=== PATIENT | female | born 1930 | race Caucasian/White ===

== ENCOUNTER 2017-04-13 00:07 | Emergency (ER) | payer MEDICARE, BC ==
[~2017-04-13] VITALS: Ht 160 cm; Wt 78.5 kg
[~2017-04-13 00:07] MED LIST: AMLODIPINE5 MG PO; ATENOLOL50 MG PO; CENTRUM1 TAB PO; CIPRO500 MG; CIPROFLOXACIN500 MG PO; COMBIGAN 0.2%-0.5 ML OP; DYAZIDE 25 MG-31 CAP PO; HYDROCHLOROTHIA25 MG PO; K-PHOS500 MG PO; LOVENOX30 MG/0.3 SC; LUMIGAN 2.5 ML2.5 ML OPH; METAMUCIL1 PDR PO; PREVACID30 M1 PO; PROTONIX40 M1 PO; TIMOLOL 5 ML5 ML OP; TYLENOL500 MG PO; VICODIN 5/500 505 MG; XANAX0.25 MG PO
[2017-04-13] MEDS ORDERED: LOSARTAN-HCTZ1 EAC1 PO (00:20)
[2017-04-13] MEDS ORDERED: LATANOPROST 2.2.5 ML OP (00:21)
[2017-04-13 00:57] LABS: BASO # 0.1 10*3/uL (0.0-0.1); BASO % 0.7 % (0.0-1.0); EOS # 0.2 10*3/uL (0.0-0.4); EOS % 1.6 % (1.0-4.0); HEMATOCRIT 39.3 % (37.0-47.0); HEMOGLOBIN 13.6 g/dl (12.0-16.0); LYMPH # 2.9 10*3/uL (1.3-4.4); LYMPH % 26.3 % (27.0-41.0); MEAN CELL VOLUME 87.1 fl (81.0-99.0); MEAN CORPUSCULAR HGB 30.2 pg (27.0-31.0); MEAN CORPUSCULAR HGB CONC 34.6 g/dl (33.0-37.0); MEAN PLATELET VOLUME 9.3 fl (9.6-12.3); MONO # 0.8 10*3/uL (0.1-1.0); MONO % 7.4 % (3.0-9.0); NEUT % 63.7 % (47.0-73.0); PLATELET COUNT AUTOMATED 280 10*3/uL (130-400); RED BLOOD COUNT 4.51 10*6/uL (4.10-5.10); RED CELL DISTRI WIDTH 12.3 % (0-14.5); WHITE BLOOD COUNT 10.9 10*3/uL (4.8-10.8)
[2017-04-13 01:17] LABS: ALBUMIN 3.3 gm/dl (3.1-4.5); ALKALINE PHOSPHATASE 83 U/L (45-117); BUN 19 mg/dl (7-24); CHLORIDE 103 mmol/L (98-107); CREATININE 1.08 mg/dL (0.55-1.02); POTASSIUM 3.3 mmol/L (3.5-5.1); SGPT/ALT 16 U/L (12-78); SODIUM 139 mmol/L (136-145); TOTAL PROTEIN 7.3 gm/dL (6.4-8.2)
[2017-04-13 01:25] LABS: SGOT/AST 18 IU/L (3-35)
[2017-04-13 01:27] LABS: TROPONIN I < 0.015 ng/ml (<0.045)
[2017-04-13] MEDS ORDERED: PROAIR HFA8.5 GM INH (01:30)
[2017-04-13] MEDS ORDERED: VIBRAMYCIN100 MG PO (01:30)
== END 2017-04-13 01:56 | disposition home or self-care (01) ==
LOC: ED 00:07
PROVIDERS: Physician Assistant
DX: J40 Bronchitis, not specified as acute or chronic (principal); Z88.0 Allergy status to penicillin; Z79.899 Other long term (current) drug therapy